=== PATIENT | male | born 2000 | race American Indian/Alaskan Native ===

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

== ENCOUNTER 2021-11-08 07:39 | Emergency (ER) | payer MEDICAID ==
[2021-11-08 07:51] VITALS: BP 143/79
--- NOTE | 2021-11-08 08:19 | ED Physician Documentation ---
PD HPI SKIN - Stated complaint Stated Complaint: LOWER BACK LUMP - Chief complaint Chief Complaint: Wound - History obtained from History obtained from: Patient - History of Present Illness Timing - onset: How many weeks ago (2) Timing - duration: Weeks (2) Timing - details: Gradual onset, Waxing and waning (Patient has had a couple of weeks of swelling pain and tenderness at the coccygeal area. It will increase and then drain briefly, and somewhat improve, but not resolve. It is now worse and not draining the past several days. Worse pain.) Location: Other (coccygeal area) Quality / character: Painful, Raised, Swelling, Draining Associated symptoms: No: Fever, Myalgias, N/V/D Recently seen: Not recently seen Review of Systems Constitutional: denies: Fever, Chills GI: denies: Abdominal Pain, Nausea, Vomiting, Constipation PD PAST MEDICAL HISTORY - Past Medical History Cardiovascular: None Respiratory: Asthma Endocrine/Autoimmune: None - Past Surgical History Past Surgical History: Yes HEENT: Tonsil/Adenoidectomy - Present Medications Home Medications: Ambulatory Orders Medication Instructions Recorded Confirmed Albuterol Sulfate [Albuterol 1 puffs INH PRN PRN 04/17/14 11/08/21 Sulfate Hfa] Ibuprofen [Motrin] 600 mg PO TID PRN #25 tab 11/08/21 Sulfamethox/Trimeth 800/160 1 each PO BID #14 tablet 11/08/21 [Bactrim Ds 800/160] - Allergies Allergies/Adverse Reactions: Allergies Allergy/AdvReac Type Severity Reaction Status Date / Time No Known Drug Allergies Allergy Verified 11/08/21 07:45 - Social History Does the pt smoke?: No Smoking Status: Never smoker Does the pt drink ETOH?: No Does the pt have substance abuse?: No - Immunizations Immunizations are current?: Yes - POLST Patient has POLST: No PD ED PE NORMAL - Vitals Vital signs reviewed: Yes - General General: Alert and oriented X 3, Well developed/nourished - Abdomen Abdomen: Soft, Non tender - Derm Derm: Normal color, Warm and dry, Other (The perirectal area does not have any acute abnormalities directly. The pilonidal area does have local swelling tenderness and induration. There does appear feels some fluctuance in the area. Approximately 2 to 3 cm sized area of swelling.) Results - Vitals Vitals: Vital Signs - 24 hr 11/08/21 07:46 Temperature 37.4 C Heart Rate 94 Respiratory 18 Rate Blood Pressure 143/79 H O2 Saturation 96 Oxygen O2 Source Room air - Labs Labs: Microbiology 11/08/21 08:55 Wound Culture - Preliminary Cyst Procedures - Abscess I&D (location) pilonidal area Preparation: Lidocaine 1%, With epi Incision: Incised with scalpel, Purulent drainage, Irrigated, Culture obtained Other: Pt tolerated well, Dressing applied, Antibiotic prescribed PD MEDICAL DECISION MAKING - ED course Complexity details: considered differential (Consistent with pilonidal abscess that has been incompletely draining on its own. Now feels blocked and swollen. Incision and drainage was done with expression of purulent material and improvement in pain. Antibiotics will be prescribed.), d/w patient Departure - Departure Disposition: 01 Home, Self Care Clinical Impression: Pilonidal abscess Condition: Stable Record reviewed to determine appropriate education?: Yes Instructions: ED Abscess IandD Follow-Up: Nelson Mullins MD [Provider Admit Priv/Credential] - Prescriptions: Sulfamethox/Trimeth 800/160 [Bactrim Ds 800/160] 1 each PO BID #14 tablet Ibuprofen [Motrin] 600 mg PO TID PRN #25 tab PRN Reason: Pain Comments: Soaking or warm wet compresses to the area several times through the day today and into tomorrow. Try to "milk" any further pus out of the cavity by massaging from below it up to the area with the soaking in compresses. Bactrim antibiotic twice daily for the next 5 to 7 days. I would anticipate this seeming improved without any further purulent drainage over the next few days. The skin should then healed up adequately over the area in the infection be gone presumably at that point. Follow-up with general surgery in the near future to discuss whether to subsequently have the cyst area excised (typically outpatient surgery or in the office). Use some anti-inflammatory such as ibuprofen 3 times a day with food for the next several days to week for pain and swelling. Add Tylenol every 4 hours if needed for pain. If not hurt so much now that the area is decompressed. I transmitted your prescription to [facility] in [place]. Discharge Date/Time: 11/08/21 09:18
[2021-11-08] MEDS ORDERED: LIDOCAINE 1%-EPI 1:100000 20 ML MDV SUBQ STA (08:32)
[2021-11-08] MEDS ORDERED: SULFAMETH/TRIMETH DS 800/160 MG TABLET PO STA (08:32)
[2021-11-08] MEDS ORDERED: IBUPROFEN 600 MG TABLET PO STA (08:46)
[2021-11-08] MEDS ORDERED: HYDROcod/ACETAM 5/325 MG TABLET PO STA (08:46)
== END 2021-11-08 09:18 | disposition home or self-care (01) ==
LOC: ED 07:39
DX: L05.01 Pilonidal cyst with abscess (principal)
CPT/HCPCS: 10080; 87070; 87205; 99282; 99283; A9270